=== PATIENT | female | born 1995 | race Caucasian/White ===

== ENCOUNTER 2016-12-06 09:27 | Outpatient (CLI) | payer MEDICAID ==
[~2016-12-06] VITALS: Ht 152.4 cm; Wt 73.5 kg
[~2016-12-06 09:27] MED LIST: INH; PYRI50TA80
[2016-12-06 09:30] VITALS: Ht 152.4 cm; Wt 73.5 kg
[2016-12-06 09:33] VITALS: BP 146/83; RESP 18
[2016-12-06] MEDS ORDERED: PREN1TAB17 PO (09:38)
--- NOTE | 2016-12-06 12:47 | RADRPT ---
PROCEDURE: US OB biophysical profile. CLINICAL INDICATION: decreased movements TECHNIQUE: Multiple sonographic images of the pelvis were obtained. The images were reviewed on a PACS workstation. COMPARISON: No prior studies are available for comparison. FINDINGS: There is a single viable intrauterine gestation. Cardiac activity is present with 146 beats per min archana. There is a vertex presentation. The placenta is right lateral. There is no evidence of placental abruption. There is a normal amount of amniotic fluid with an ANALIA = 9.5 cm. Biophysical profile: movement 2/2 tone 2/2. breathing 2/2 ANALIA 2/2 Total 07/01 RPTAT: AA . IMPRESSION: Normal biophysical profile. . .Jose Antonio Fagan MD, MD Date Time Electronically viewed and signed by .Jose Antonio Fagan MD, MD on 12/06/2016 12:47 .S/
[2016-12-06] MEDS ORDERED: DOXY1TAB3 PO (21:27)
[2016-12-06] MEDS ORDERED: CALC600T5 PO (21:27)
[2016-12-06] MEDS ORDERED: FERR325C PO (21:27)
== END 2016-12-06 13:13 | disposition home or self-care (01) ==
LOC: OBT 09:27 → L-D 09:28 → OBT 13:13
PROVIDERS: ATTEND Obstetrics & Gynecology
DX: O62.9 Abnormality of forces of labor, unspecified (principal); O36.8130 Decreased fetal movements, third trimester, not applicable or unspecified; Z3A.00 Weeks of gestation of pregnancy not specified
CPT/HCPCS: 76818; Z7500; G0463

== ENCOUNTER 2016-12-06 21:12 | Outpatient (CLI) | payer MEDICAID ==
[~2016-12-06] VITALS: Ht 149.9 cm; Wt 73.1 kg
[~2016-12-06 21:12] MED LIST changes: +PREN1TAB17 PO
[2016-12-06] MEDS ORDERED: DOXY1TAB3 PO (21:27)
[2016-12-06] MEDS ORDERED: FERR325C PO (21:27)
[2016-12-06] MEDS ORDERED: CALC600T5 PO (21:27)
[2016-12-06 21:28] VITALS: BP 120/80; PULSE 100; RESP 20; Ht 149.9 cm; Wt 73.1 kg
--- NOTE | 2016-12-06 22:22 | PN ---
Date/Time of Note Date/Time of Note DATE: 12/06/16 TIME: 22:00 OB Subjective Subjective Subjective 21 yo [id number] @ 39.1 wks presents to r/o labor - ctx, good FM, no LOF OB Objective Objective Objective 120/80, 100, 20, 98.2 Abdomen- gravid, n/t SVE- l/c/p FHT- Cat i [place]- irreg ctx Abdomen: WNL Cervical Dilatation: None Effacement: 0% Membranes: Intact Heart Rate: 140's Accelerations: Accelerations Present Decelerations: No Decelerations Contractions on Admission: < 5 Minutes Apart Intensity: Moderate OB Assessment/Plan Other Assessment: 21 yo P0 @ 39wks, r/o labor - reassuring FHT - not in labor Other plan: d/c home labor precautions DALY MARTINEZ MD Dec 06, 2016 22:10
--- NOTE | 2016-12-06 22:26 | TRIAGE ---
OB Triage Datetime Report Generated by CPN: 12/06/2016 22:25 Datetime: 12/06/2016 21:48 Labor Evaluation Frequency: 5 Monitor Mode: External Duration (sec)2399: 90-110 Pattern: Normal: <= 5 Contractions in 10 Minutes Heart Rate FHR Baseline Rate: 135 Monitor Mode: External US FHR Baseline Changes: No Baseline Change Variability: Moderate 6-25 bpm Accelerations: 15X15 Decelerations: None Category: Category I Datetime: 12/06/2016 21:30 Labor Evaluation Frequency: 5 Monitor Mode: External Duration (sec)2399: 70-90 Pattern: Normal: <= 5 Contractions in 10 Minutes Heart Rate FHR Baseline Rate: 145 Monitor Mode: External US FHR Baseline Changes: No Baseline Change Variability: Moderate 6-25 bpm Accelerations: 15X15 Decelerations: None Category: Category I Datetime: 12/06/2016 21:25 Vaginal Exam Dilatation (cms): 0.0 Effacement (%): 0 Station: -2 Exam By: CONCETTA RN Cervix, Consistency: Firm Cervix, Position: Posterior Presentation 'A': Cephalic Datetime: 12/06/2016 21:22 Monitor Mode: Palpation Quality: Mild Pain Assessment Pain Scale: 10 Pain Relief Measures: Comfort Measures Datetime: 12/06/2016 21:21 Monitor Mode: Palpation Resting Tone [place]: Relaxed Datetime: 12/06/2016 21:17 Assessment Type: Triage Maternal Assessment Level of Consciousness: Fully Conscious DTR's/Clonus: DTRs 2+; No Clonus Headache: Denies Blurred Vision: No Respiratory Effort: Unlabored; Regular Rhythm; Equal Expansion Breath Sounds, Left: Clear and Equal Breath Sounds, Right: Clear and Equal Nausea/Vomiting: Denies RUQ Epigastric Pain: Denies Lower Extremities Edema: Bilateral Lower Extremities (Annotations: TRACE EDEMA) Upper Extremities Edema: None Facial Edema: None Fall Risk Assessment History of Falling: (0) No Secondary Diagnosis: (0) No Ambulatory Aid: (0) Bedrest/Nurse Assist IV Therapy: (0) No Gait: (0) Normal/Bedrest/Immobile Mental Status: (0) Oriented to Own Ability Fall Score: 0 Fall Risk Score Definition: No Risk: No action required Contraction Comments: EXTERNAL MONITOR APPLIED Comments: EXTERNAL MONITOR APPLIED Datetime: 12/06/2016 21:15 Time of Arrival: 12/06/2016 21:07 EGA: 39.1 Arrived By: Wheelchair Arrived From: Home Chief Complaint: UC'S SINCE 03:00, WAS IN OB TRIAGE EARLIER TODAY Movement: Present Contractions: Regular Time Contractions Began: 12/06/2016 03:00 Contractions: Q5MIN Rupture of Membranes: Denies Vaginal Bleeding: None Vaginal Discharge: Denies Recent Sexual Intercouse: Denies Abdominal Trauma: Not Applicable Patient Complaints: Contractions Time Provider Notified: 12/06/2016 21:16 Provider Notified: MICHELLE Initial Plan: EFM,SVE, CALL OB Datetime: 12/06/2016 11:57 Comments: US at bedside Datetime: 12/06/2016 10:55 Labor Evaluation Frequency: 1-3 Monitor Mode: External Duration (sec)2399: 30-50 Heart Rate FHR Baseline Rate: 135 Pain Presence: None/Denies Pain Type: N/A Datetime: 12/06/2016 10:29 Stage of : OB Triage Datetime: 12/06/2016 10:21 Vaginal Exam Dilatation (cms): 0.5 Effacement (%): 50 Station: -3 Exam By: Priya Bird Vaginal Bleeding: None Cervix, Consistency: Moderate Cervix, Position: Posterior Datetime: 12/06/2016 09:42 Time of Arrival: 12/06/2016 09:24 EGA: 39.1 Arrived By: Ambulatory Arrived From: Home Chief Complaint: uc's Movement: Present Contractions: Regular Time Contractions Began: 12/06/2016 03:00 Contractions: q 5 minutes Rupture of Membranes: Denies Vaginal Bleeding: None Vaginal Discharge: Denies Recent Sexual Intercouse: Denies Abdominal Trauma: Not Applicable Patient Complaints: Contractions Time Provider Notified: 12/06/2016 09:43 Provider Notified: Dr. Azevedo Initial Plan: EFM X 2, BPP/ANALIA Datetime: 12/06/2016 09:40 Stage of : OB Triage Assessment Type: Triage Maternal Assessment Level of Consciousness: Fully Conscious DTR's/Clonus: DTRs 2+; No Clonus Headache: Denies Blurred Vision: No Respiratory Effort: Unlabored; Regular Rhythm; Equal Expansion Breath Sounds, Left: Clear and Equal Breath Sounds, Right: Clear and Equal Nausea/Vomiting: Denies RUQ Epigastric Pain: Denies Lower Extremities Edema: None Degree: None Upper Extremities Edema: None Degree: None Facial Edema: None Temperature Route: Oral Fall Risk Assessment History of Falling: (0) No Secondary Diagnosis: (0) No Ambulatory Aid: (0) Bedrest/Nurse Assist IV Therapy: (0) No Gait: (0) Normal/Bedrest/Immobile Mental Status: (0) Oriented to Own Ability Fall Score: 0 Fall Risk Score Definition: No Risk: No action required Monitor Mode: External Heart Rate FHR Baseline Rate: 145 Monitor Mode: External US Variability: Moderate 6-25 bpm Accelerations: 15X15 Decelerations: None Pain Assessment Pain Scale: 0 Pain Presence: None/Denies Pain Type: N/A
== END 2016-12-06 22:11 | disposition home or self-care (01) ==
LOC: L-D 21:12 → OBT 21:12
PROVIDERS: ATTEND Obstetrics & Gynecology
DX: O62.9 Abnormality of forces of labor, unspecified (principal); O36.8130 Decreased fetal movements, third trimester, not applicable or unspecified; Z3A.39 39 weeks gestation of pregnancy
CPT/HCPCS: G0463

== ENCOUNTER 2016-12-07 11:31 | Inpatient (IN) | payer MEDICAID ==
[~2016-12-07] VITALS: Ht 149.9 cm; Wt 72.0 kg
[~2016-12-07 11:31] MED LIST changes: +CALC600T5 PO; +DOXY1TAB3 PO; +FERR325C PO; -INH; -PYRI50TA80
[2016-12-07 11:47] VITALS: Ht 149.9 cm; Wt 72.0 kg
[2016-12-07 11:48] VITALS: BP 110/72; PULSE 104; RESP 20
--- NOTE | 2016-12-07 14:20 | TRIAGE ---
OB Triage Datetime Report Generated by CPN: 12/07/2016 14:20 Datetime: 12/07/2016 14:19 Assessment Type: Admission Assessment Vaginal Bleeding: None Level of Consciousness: Fully Conscious DTR's/Clonus: DTRs 2+; No Clonus Headache: Denies Blurred Vision: No Respiratory Effort: Unlabored; Regular Rhythm; Equal Expansion Breath Sounds, Left: Clear and Equal Breath Sounds, Right: Clear and Equal Nausea/Vomiting: Denies RUQ Epigastric Pain: Denies Facial Edema: None History of Falling: (0) No Secondary Diagnosis: (0) No Ambulatory Aid: (0) Bedrest/Nurse Assist IV Therapy: (0) No Gait: (0) Normal/Bedrest/Immobile Mental Status: (0) Oriented to Own Ability Datetime: 12/07/2016 12:26 Frequency: 6-8 Monitor Mode: External Duration (sec)2399: 60 Quality: Moderate Pattern: Normal: <= 5 Contractions in 10 Minutes Resting Tone Rudd: Relaxed FHR Baseline Rate: 150 Monitor Mode: External US FHR Baseline Changes: No Baseline Change Variability: Moderate 6-25 bpm Accelerations: 15X15 Decelerations: None Category: Category I Pain Scale: 8 Pain Presence: Intermittent Pain Type: Contraction Pain Location: Abdomen Pain Goal: 5 Datetime: 12/07/2016 11:48 Dilatation (cms): 3.0 Effacement (%): 80 Station: -2 Exam By: BLAZE SELBY Vaginal Bleeding: None Cervix, Consistency: Soft Cervix, Position: Midposition Presentation 'A': Cephalic Datetime: 12/07/2016 11:41 Level of Consciousness: Fully Conscious DTR's/Clonus: DTRs 2+ Headache: Denies Blurred Vision: No Nausea/Vomiting: Denies RUQ Epigastric Pain: Denies Facial Edema: None Frequency: Q 5 AT HOME Monitor Mode: External Quality: Moderate Pattern: Normal: <= 5 Contractions in 10 Minutes Resting Tone Rudd: Relaxed FHR Baseline Rate: 145 Monitor Mode: External US FHR Baseline Changes: No Baseline Change Variability: Moderate 6-25 bpm Accelerations: 15X15 Decelerations: None Category: Category I Pain Scale: 10 Pain Presence: Intermittent Pain Type: Contraction Pain Location: Abdomen Pain Goal: 5 Membrane Status: Intact Datetime: 12/07/2016 11:40 Time of Arrival: 12/07/2016 11:30 EGA: 39.2 Arrived By: Wheelchair Arrived From: Home Chief Complaint: UCS SINCE 299 Movement: Present Contractions: Regular Time Contractions Began: 12/07/2016 03:00 Vaginal Bleeding: None Patient Complaints: Contractions Provider Notified: DR HECK Initial Plan: EFM,CALL DR HECK Level of Consciousness: Fully Conscious DTR's/Clonus: DTRs 2+; No Clonus Headache: Denies Blurred Vision: No Respiratory Effort: Unlabored; Regular Rhythm; Equal Expansion Breath Sounds, Left: Clear and Equal Breath Sounds, Right: Clear and Equal Nausea/Vomiting: Denies RUQ Epigastric Pain: Denies Facial Edema: None Temperature Route: Axillary History of Falling: (0) No Secondary Diagnosis: (0) No Ambulatory Aid: (0) Bedrest/Nurse Assist IV Therapy: (0) No Gait: (0) Normal/Bedrest/Immobile Mental Status: (0) Oriented to Own Ability Fall Score: 0 Fall Risk Score Definition: No Risk: No action required Datetime: 12/06/2016 21:17 Fall Score: 0 Fall Risk Score Definition: No Risk: No action required Datetime: 12/06/2016 21:15 EGA: 39.1 Datetime: 12/06/2016 09:42 EGA: 39.1 Datetime: 12/06/2016 09:40 Fall Score: 0 Fall Risk Score Definition: No Risk: No action required
[2016-12-07] MEDS ORDERED: MISOPROSTOL 200 MCG TAB PR PRN (15:00)
[2016-12-07] MEDS ORDERED: BUTORPHANOL 2 MG INJ IV PRN (15:00)
[2016-12-07] MEDS ORDERED: CARBOPROST 250 MCG INJ IM PRN (15:00)
[2016-12-07] MEDS ORDERED: IBUPROFEN 600 MG TAB PO PRN (15:00)
[2016-12-07] MEDS ORDERED: OXYTOCIN 30 UNITS/LR 500 ML IV PRN (15:00)
[2016-12-07] MEDS ORDERED: OXYTOCIN 30 UNITS/LR 500 ML IV SCH ×4 (15:00→23:00)
[2016-12-07] MEDS ORDERED: LIDOCAINE 1% (MPF) 30 ML INJ INJ PRN (15:00)
[2016-12-07] MEDS ORDERED: METHYLERGONOVINE 0.2 MG INJ IM PRN (15:00)
[2016-12-07] MEDS: LACTATED RINGER'S 1,000 ML IV SCH ×2 (15:03→21:56)
[2016-12-07] MEDS ORDERED: LACTATED RINGER'S 1,000 ML IV PRN (15:30)
[2016-12-07 15:58] LABS: BASOPHILS % 0.4 % (0.0-2.0); EOSINOPHILS % 0.2 % (0.0-7.0); HEMATOCRIT 36.4 % (37.0-47.0); HEMOGLOBIN 12.3 g/dl (12.0-16.0); LYMPHOCYTES # 1.9 10^3/ul (0.8-2.9); MEAN CORPUSCULAR HEMOGLOBIN 27.6 pg (29.0-33.0); MEAN CORPUSCULAR HGB CONC 33.7 g/dl (32.0-37.0); MEAN CORPUSCULAR VOLUME 81.9 fl (82.0-101.0); MEAN PLATELET VOLUME 9.9 fl (7.4-10.4); MONOCYTE # 0.5 10^3/ul (0.3-0.9); MONOCYTES % 3.7 % (0.0-11.0); NEUTROPHIL # 10.8 10^3/ul (1.6-7.5); NEUTROPHILS % 81.7 % (39.0-77.0); PLATELET COUNT 295 10^3/UL (140-440); RED BLOOD COUNT 4.45 10^6/ul (4.20-5.40); RED CELL DISTRIBUTION WIDTH 16.3 % (11.5-14.5); UNCORRECTED WBC 13.2 10^3/ul (4.8-10.8); WHITE BLOOD COUNT 13.2 10^3/ul (4.8-10.8)
[2016-12-07 16:03] LABS: CONDITION 1; LH ANALYZER COMMENTS 1
[2016-12-07 16:04] LABS: INR 0.89; PT RATIO 0.9
[2016-12-07] MEDS ORDERED: TERBUTALINE 1 MG/ML INJ SC ONE (18:30)
[2016-12-07] MEDS ORDERED: FENTAnyl 2MCG/ML-ROPIV 0.2% 100 ML ONE (18:46)
[2016-12-07] MEDS: FENTAnyl 2MCG/ML-ROPIV 0.2% 100 ML BAG EPI SCH (19:11)
[2016-12-07] MEDS ORDERED: NALOXONE (0.4 MG/ML) INJ IV PRN (19:30)
[2016-12-07] MEDS: ONDANSETRON 4 MG INJ IV PRN (22:20)
[2016-12-08] MEDS: FENTAnyl 2MCG/ML-ROPIV 0.2% 100 ML BAG EPI SCH (03:22)
[2016-12-08] MEDS: ONDANSETRON 4 MG INJ IV PRN (06:35)
[2016-12-08] MEDS: LACTATED RINGER'S 1,000 ML IV SCH (06:40)
--- NOTE | 2016-12-08 09:29 | HP ---
Date/Time of Note Date/Time of Note DATE: 12/08/16 TIME: 09:22 OB - History Hx of Present Free Text/Dictation 21 years old 39 weeks 2 days 2 para 0 SAB 1 with an EDC of admitted to [facility] in labor, pelvic examination on admission cervical dilatation 3 CM 80% effaced vertex at -2 station contraction every 3-5 minutes it seems patient is moving toward active labor admitted to delivery room. Chief Complaint: labor pain Estimated Due Date: Dec 12, 2016 : 2 Para: 0 Spontaneous : 1 Care: Good Care Obstetrical Complications: None Past Family/Social History * Past Medical, Surgical, Family and Obstetric Histories reviewed from chart. Rubella: immune RPR/VDRL: Negative GBS Status: Negative HBsAG: Negative OB Admission Exam Vital Signs Vital Signs Vital Signs Date Time Temp Pulse Resp B/P Pulse Ox O2 Delivery O2 Flow Rate FiO2 12/07/16 11:48 98.0 104 20 110/72 97 Room Air Physical Exam HEENT: WNL Heart: Rhythm Normal Lungs: Clear, Equal Abdomen: WNL Extremities: Normal Reflexes: Normal Cervical Dilatation: 3cm Effacement: 75% Station: -2 Membranes: Intact Amniotic Fluid: Thin Meconium Heart Rate: 130's Accelerations: Accelerations Present Decelerations: No Decelerations Varibility: Moderate Contractions on Admission: < 5 Minutes Apart Intensity: Moderate Last 72 hours Lab Results CBC & BMP 12/07/16 12:00 ENA HECK MD Dec 08, 2016 09:29
--- NOTE | 2016-12-08 09:36 | LDN ---
Date/Time of Note Date/Time of Note DATE: 12/08/16 TIME: 09:29 Delivery Summary Normal spontaneous vaginal delivery of a baby boy shoulders delivered with no difficulty with body to follow meconium-stained amniotic fluid .placenta spontaneous expulsion meconium stained inspected complete placenta submitted to pathology, no perineal laceration estimated blood loss 250 mL Placenta Delivered: Spontaneously Meconium: Light Perineum intact?: Yes Anesthesia type: Epidural Sponge & Needle done & correct: Yes All needle counts correct: Yes Any foreign bodies felt in the: No Problems: Infant Delivery Information Sex Sex: male Apgars 1 Minute: 9 5 Minute: 9 Suctioning Nose & mouth suctioned at debo: Yes Delee suction performed: No Umbilical Cord Umbilical cord with: 3 Vessels Cord presentations: no nuchal cord Cord Blood was obtained: Yes ENA HECK MD Dec 08, 2016 09:36
[2016-12-08] MEDS ORDERED: LANOLIN 7 GM TUBE TOP PRN (10:00)
[2016-12-08] MEDS ORDERED: ONDANSETRON 4 MG INJ IV PRN (10:00)
[2016-12-08] MEDS ORDERED: WITCH HAZEL/GLYCERIN PAD PR PRN (10:00)
[2016-12-08] MEDS ORDERED: ACETAMINOPHEN 325 MG TAB PO PRN (10:00)
[2016-12-08] MEDS ORDERED: ACETAMINOPHEN/CODEINE #3 TAB PO PRN ×2 (10:00)
[2016-12-08] MEDS ORDERED: OXYCODONE/ASPIRIN (4.88/325) TAB PO PRN ×2 (10:00)
[2016-12-08] MEDS ORDERED: BENZOCAINE 20% 56 ML SPRAY TOP PRN (10:00)
[2016-12-08] MEDS ORDERED: DIBUCAINE 1% 30 GM OINT PR PRN (10:00)
--- NOTE | 2016-12-08 10:59 | DELSUM ---
Delivery Summary A-C Datetime Report Generated by CPN: 12/08/2016 10:59 DELIVERY PERSONNEL Programmable Logic Controller Assembler: Dawson, [place] MATERNAL INFORMATION Delivery Anesthesia: Epidural Medications in Delivery: pit Estimated Blood Loss (ml): 200 Placenta Cultured: No Maternal Complications: None LABOR SUMMARY EDC: 12/12/2016 00:00 No. Babies in Womb: 1 Attempted: No Labor Anesthesia: Epidural LABOR INFORMATION Reason for Induction: Not Applicable Onset of Labor: 12/07/2016 03:00 Onset of Labor: 12/07/2016 03:00 Complete Dilatation: 12/08/2016 07:30 Oxytocin: N/A Group B Beta Strep: Negative (Annotations: PNR 12/12/16) Group B Beta Strep: Negative Group B Beta Strep: Negative Antibiotics # of Doses: 0 Antibiotics Time of Last Dose: N/A Steroids Given: None Reason Steroids Not Administered: Not Applicable MEMBRANES Membranes Rupture Method: Spontaneous Membranes Rupture Method: Spontaneous Rupture of Membranes: 12/08/2016 08:54 Length of Rupture (hr): 0.30 Amniotic Fluid Color: Heavy Meconium Amniotic Fluid Color: Clear Amniotic Fluid Amount: Moderate Amniotic Fluid Amount: Small Amniotic Fluid Odor: Normal Amniotic Fluid Odor: Normal STAGES OF LABOR Stage 1 hr: 28 Stage 1 hr: 28 Stage 1 min: 30 Stage 1 min: 30 Stage 2 hr: 1 Stage 2 min: 42 Stage 3 hr: 0 Stage 3 min: 1 Total Time in Labor hr: 30 Total Time in Labor hr: 30 Total Time in Labor min: 13 Total Time in Labor min: 13 VAGINAL DELIVERY Episiotomy: None Laceration Extension: N/A Laceration Type: None Laceration Repair: Not Applicable Initial Vag Sponge Count: 10 Final Vag Sponge Count: 10 Initial Vag Sharps Count: 1 Final Vag Sharps Count: 1 Sponge Count Correct: Yes Sharps Count Correct: Yes Count Comment: 10 RAYTEX BABY A INFORMATION Delivery Date/Time: 12/08/2016 09:12 Method of Delivery: Vaginal Method of Delivery: Vaginal Born in Route : No : N/A Forceps: N/A Vacuum Extraction: N/A Shoulder Dystocia : No SHOULDER DYSTOCIA BABY A Infant Delivery Date/Time: 12/08/2016 09:12 PRESENTATION/POSITION BABY A Presentation: Cephalic Presentation: Cephalic Presentation: Cephalic Presentation: Cephalic Presentation: Cephalic Cephalic Presentation: Vertex Vertex Position: Left Occipital Anterior Breech Presentation: N/A PLACENTA INFORMATION BABY A Placenta Delivery Time : 12/08/2016 09:13 Placenta Method of Delivery: Spontaneous Placenta Method of Delivery: Spontaneous Placenta Status: Delivered SCORES BABY A Heart Rate 1 min: >100 bpm Resp Effort 1 min: Good Cry Reflex Irritability 1 min: Cough/Sneeze/Pulls Away Muscle Tone 1 min: Active Motion Color 1 min: Body Earling, Extremit Blue Resuscitation Effort 1 min: Tactile Stimulation SCORE 1 MIN: 9 Heart Rate 5 min: >100 bpm Resp Effort 5 min: Good Cry Reflex Irritability 5 min: Cough/Sneeze/Pulls Away Muscle Tone 5 min: Active Motion Color 5 min: Body Earling, Extremit Blue SCORE 5 MIN: 9 INFORMATION BABY A Gestational Age at Delivery: 39.2 Gestational Status: Full Term- 39- 40.6 Weeks Outcome : Liveborn Condition : Stable Sex: Male Sex: Male IDENTIFICATION/MEDS BABY A ID Band Number: [id number] ID Band Location: Right Leg; Left Arm Sensor Applied: Yes Sensor Number: [id number] Sensor Location : Cord Clamp Vitamin K Given : Not Given Erythromycin Given: Not Given WEIGHT/LENGTH BABY A Birthweight (gm): 2765 Infant Weight (lb): 6 Weight (oz): 2 Infant Length (in): 19.50 Length (cm): 49.53 CORD INFORMATION BABY A No. Cord Vessels: 3 Nuchal Cord : N/A Cord Blood Taken: Yes Banking/Donate Info: NO Infant Suction: Mouth; Nose ASSESSMENT BABY A Complications: Multiple Variable Decels; Meconium Physical Findings at Delivery: Within Normal Limits Respirations: Appears Normal Tumbler Drier Operator/ALS Called : No Infant Care By: PIPPA/SHELLI RNC Transferred To: Remains with Mother
[2016-12-08 11:30] VITALS: BP 109/62; PULSE 99; RESP 18
[2016-12-08 12:00] VITALS: BP 102/65; PULSE 100
[2016-12-08] MEDS: IBUPROFEN 600 MG TAB PO SCH ×2 (12:20→18:04)
[2016-12-08] MEDS: OXYTOCIN 30 UNITS/LR 500 ML IV SCH ×2 (12:21→13:41)
[2016-12-08 16:00] VITALS: BP 116/60; PULSE 90; RESP 17
[2016-12-08 19:30] VITALS: BP 101/58; PULSE 94; RESP 20
[2016-12-08] MEDS: SENNA/DOCUSATE NA (8.6MG/50MG) TAB PO SCH (21:27)
[2016-12-09] MEDS: IBUPROFEN 600 MG TAB PO SCH ×5 (00:30→23:24)
[2016-12-09 04:30] VITALS: BP 113/67; RESP 18
[2016-12-09 08:10] VITALS: BP 109/63; PULSE 85; RESP 16
[2016-12-09 08:24] LABS: BASOPHILS % 0.4 % (0.0-2.0); EOSINOPHILS # 0.1 10^3/ul (0.0-0.5); HEMATOCRIT 29.6 % (37.0-47.0); HEMOGLOBIN 10.1 g/dl (12.0-16.0); LYMPHOCYTES # 2.8 10^3/ul (0.8-2.9); LYMPHOCYTES % 22.3 % (15.0-51.0); MEAN CORPUSCULAR HEMOGLOBIN 28.2 pg (29.0-33.0); MEAN CORPUSCULAR VOLUME 82.9 fl (82.0-101.0); MEAN PLATELET VOLUME 8.9 fl (7.4-10.4); MONOCYTE # 0.6 10^3/ul (0.3-0.9); NEUTROPHIL # 8.9 10^3/ul (1.6-7.5); NEUTROPHILS % 71.3 % (39.0-77.0); PLATELET COUNT 212 10^3/UL (140-440); RED BLOOD COUNT 3.57 10^6/ul (4.20-5.40); RED CELL DISTRIBUTION WIDTH 16.3 % (11.5-14.5); UNCORRECTED WBC 12.4 10^3/ul (4.8-10.8); WHITE BLOOD COUNT 12.4 10^3/ul (4.8-10.8)
[2016-12-09 08:38] LABS: CONDITION 1; LH ANALYZER COMMENTS 1
[2016-12-09] MEDS: SENNA/DOCUSATE NA (8.6MG/50MG) TAB PO SCH ×2 (09:27→21:00)
[2016-12-09 16:00] VITALS: BP 115/64; PULSE 92; RESP 16
--- NOTE | 2016-12-09 16:55 | PN ---
Date/Time of Note Date/Time of Note DATE: 12/09/16 TIME: 16:54 OB Subjective Subjective Subjective day 1 Afebrile vital sign is stable abdomen soft uterus firm lochia normal extremity normal ENA HECK MD Dec 09, 2016 16:55
[2016-12-09 19:30] VITALS: BP 113/62; PULSE 73; RESP 20
[2016-12-10 04:22] VITALS: BP 110/64; PULSE 72; RESP 20
[2016-12-10] MEDS: IBUPROFEN 600 MG TAB PO SCH ×2 (05:33→11:50)
[2016-12-10 07:20] VITALS: BP 104/67; PULSE 72; RESP 16
[2016-12-10] MEDS: SENNA/DOCUSATE NA (8.6MG/50MG) TAB PO SCH (08:35)
[2016-12-10] MEDS ORDERED: MEASLES,MUMPS,RUBELLA VACCINE INJ SC* ONE (09:00)
--- NOTE | 2016-12-10 12:22 | PD.PPDC ---
DIRECTOR CLIENT Discharge Instruction Condition Patient Condition: Good Diet Diet: Resume Regular Diet Activity/Restrictions Activity: Normal Activity May Shower Restrictions: No Exercising No Lifting No Driving No Sexual Activity Nothing in the Vagina No [place] No Tampons, douche Follow-up Follow-up with Physician: 2, Week/Weeks Return to clinic for TRANSMISSION ENGINEER Instructions: Fever greater than 101 Worsening abdominal pain Excessive Vaginal Bleeding More than 2 pads per hour Unable to tolerate diet ENA HECK MD Dec 10, 2016 12:22
--- NOTE | 2016-12-10 12:26 | DS ---
Date/Time of Note Date/Time of Note DATE: 12/10/16 TIME: 12:24 Obstetrical Discharge Record Final Diagnosis Final Diagnosis: Term delivered Vaginal Delivery Obstetrical Delivery: Spontaneous Condition on Discharge Physical Assessment Last Vitals: Vital sign is stable afebrile abdomen soft uterus firm lochia normal extremity normal instruction recommended to make appointment in 2 weeks for check Voiding: Yes Bowel Movement: Yes Breast: Soft, non-tender, Filling Fundus: Firm Calf Tenderness: No Patient Condition: Good ENA HECK MD Dec 10, 2016 12:26
[2016-12-10] MEDS ORDERED: VITAMIN A & D 5 GM OINT PACKET TOP ONE (16:12)
== END 2016-12-10 17:04 | disposition home or self-care (01) | DRG 775 ==
LOC: L-D 11:31 → OBT 11:31 → L-D 13:30 → PP1 12-08 11:42
PROVIDERS: ADMIT Obstetrics & Gynecology; ATTEND Obstetrics & Gynecology
PROC: 10E0XZZ Delivery of Products of Conception, External Approach (ICD-10-PCS; principal; 2016-12-08)
DX: O99.214 Obesity complicating childbirth (principal); Z68.32 Body mass index [BMI] 32.0-32.9, adult; Z37.0 Single live birth; Z3A.39 39 weeks gestation of pregnancy
CPT/HCPCS: 36415; 85025; 85610; 85730; 86592; 86900; 86901; 87340; 99464; G0463; J2405; J2590; J3010; J7120